=== PATIENT | male | born 1955 | race Two or more races ===

== ENCOUNTER 2019-10-19 20:22 | Emergency (ER) | payer OTHER ==
[~2019-10-19] VITALS: Ht 170.2 cm; Wt 86.2 kg
[2019-10-19] MEDS ORDERED: COZAAR50 MG (20:32)
== END 2019-10-19 22:31 | disposition home or self-care (01) ==
LOC: ER 20:22
DX: I16.0 Hypertensive urgency (principal); I10 Essential (primary) hypertension